=== PATIENT | male | born 1980 | race Caucasian/White ===

== ENCOUNTER 2018-12-25 15:10 | Emergency (ER) | payer OTHER ==
[~2018-12-25] VITALS: Ht 177.8 cm; Wt 70.5 kg
--- NOTE | 2018-12-25 15:25 | NUR ---
PT SEEN IN [facility]
--- NOTE | 2018-12-25 15:51 | NUR ---
JAYLA PAPERWORK HANDED TO [facility] TA TO FILL OUT ; PATIENT WAITING IN ER LOBBY.
[2018-12-25 15:53] VITALS: BP 119/67
== END 2018-12-25 16:00 | disposition home or self-care (01) ==
LOC: ER 15:12
DX: J34.89 Other specified disorders of nose and nasal sinuses (principal); R42 Dizziness and giddiness; R06.02 Shortness of breath
CPT/HCPCS: 99281